=== PATIENT | male | born 1990 | race Caucasian/White ===

== ENCOUNTER 2016-12-17 20:41 | Inpatient (IN) | payer SELFPAY ==
[2016-12-17 20:42] VITALS: BP 111/65; PULSE 132; RESP 20; TEMP 100.3; O2SAT 96
[2016-12-17] MEDS ORDERED: SODIUM CHLOR 0.9% 1000 ML INJ 1,000 ML IV SCH (21:01)
[2016-12-17] MEDS ORDERED: BUSP15TA PO (21:02)
[2016-12-17] MEDS ORDERED: BUPR8SUB SL (21:02)
[2016-12-17] MEDS ORDERED: REME45TA PO (21:02)
--- NOTE | 2016-12-17 21:05 | PD ---
HPI Chief Complaint: Abdominal Pain Time Seen by Provider: 20:57 Travel History International Travel<30 days: No Contact w/Intl Traveler<30days: No History of Present Illness HPI Placed 26-year-old male presents the emergency department with history of not feeling well for the past 2 days with sudden onset nausea, and vomiting approximately 5 hours ago. Patient states he was pushing his car when he had sudden onset of nausea, vomiting, which is continued for the past 5 hours. Patient has generalized abdominal discomfort. He states he's had diarrhea for the past 2 days. He is noted to have a low-grade fever 100.6 in triage. Patient is actively nauseous and vomiting in triage. He is mildly diaphoretic. Patient does admit to taking Subutex, as well as Remeron and BuSpar. He does not feel that he is withdrawing. He denies headache, sore throat, or upper respiratory symptoms. He denies chest pain or shortness of breath. He has no history of abdominal surgeries. He has no known drug allergies Call was received from the patient's mother who reports that the patient continues to use IV drugs, and was found passed out in his car with 2 syringes in his arms, one in each arm 2 days ago. She is concerned for his safety, which is why she called to report this. Patient has not been seen in our facility previous to this visit. [facility] Social History Alcohol Use: Yes Tobacco Use: Yes Substance Use: No Allergies-Medications (Allergen,Severity, Reaction): Coded Allergies: No Known Allergies (Verified Allergy, Unknown, 12/17/16) Reported Meds & Prescriptions Reported Meds & Active Scripts Active Reported Buspirone (Buspirone HCl) 15 Mg Tab 15 Mg PO TID Remeron (Mirtazapine) 45 Mg Tab 45 Mg PO HS Buprenorphine (Buprenorphine HCl) 8 Mg Subl 8 Mg SL BID Review of Systems Except as stated in HPI: all other systems reviewed are Neg General / Constitutional: Positive: Fever, Chills Eyes: No: Visual changes HENT: No: Headaches, Vertigo, Lightheadedness, Sore Throat, Rhinitis, Rhinorrhea, Congestion, Nosebleed, Neck Stiffness, Neck Pain, Earache Cardiovascular: No: Chest Pain or Discomfort Respiratory: No: Cough, Shortness of Breath, Wheezing Gastrointestinal: Positive: Nausea, Vomiting, Diarrhea, Abdominal Pain, No: Hematemesis, Hematochezia, Constipation, Loss of Appetite Genitourinary: No: Urgency, Frequency, Dysuria Musculoskeletal: No: Pain Skin: No Rash Neurologic: No: Weakness Psychiatric: No: Depression Endocrine: No: Polydipsia Hematologic/Lymphatic: No: Easy Bruising Physical Exam Narrative GENERAL: Patient appears ill but not septic. SKIN: Warm and water or diaphoresis. Normal color. Normal turgor. Patient does have old puncture wounds from IV drug use in both proximal forearms localized bruising but no erythema, or signs of abscess. HEAD: Atraumatic. Normocephalic. EYES: Pupils equal and round. No scleral icterus. No injection or drainage. ENT: No nasal bleeding or discharge. Mucous membranes pink and moist. Pharynx is clear. Airway is patent. NECK: Trachea midline. Supple and nontender.. CARDIOVASCULAR: Tachycardic rate and normal rhythm. RESPIRATORY: No accessory muscle use. Clear to auscultation. Breath sounds equal bilaterally. GASTROINTESTINAL: Abdomen soft, mild generalized tenderness, nondistended. Hepatic and splenic margins not palpable. No CVA tenderness. MUSCULOSKELETAL: Extremities without clubbing, cyanosis, or edema. No obvious deformities. NEUROLOGICAL: Awake and alert. No obvious cranial nerve deficits. Motor grossly within normal limits. Five out of 5 muscle strength in the arms and legs. Normal speech. PSYCHIATRIC: Appropriate mood and affect; insight and judgment normal. Data Data Last Documented VS Vital Signs Date Time Temp Pulse Resp B/P (MAP) Pulse Ox O2 Delivery O2 Flow Rate FiO2 12/17/16 21:47 102.8 104 22 113/55 (74) 96 Room Air Orders Orders Complete Blood Count With Diff (12/17/16 21:01) Comprehensive Metabolic Panel (12/17/16 21:01) Lipase (12/17/16 21:01) Lactic Acid (12/17/16 21:01) Prothrombin Time / Inr (Pt) (12/17/16 21:01) Act Partial Throm Time (Ptt) (12/17/16 21:01) Urinalysis - C+S If Indicated (12/17/16 21:01) Abdomen, Flat & Upright (12/17/16 ) Iv Access Insert/Monitor (12/17/16 21:01) Ecg Monitoring (12/17/16 21:01) Oximetry (12/17/16 21:01) Ondansetron Inj (Zofran Inj) (12/17/16 21:15) Sodium Chlor 0.9% 1000 Ml Inj (Ns 1000 M (12/17/16 21:01) Sodium Chloride 0.9% Flush (Ns Flush) (12/17/16 21:15) Famotidine Inj (Pepcid Inj) (12/17/16 21:15) Influenzae A/B Antigen (12/17/16 21:05) Sodium Chlor 0.9% 1000 Ml Inj (Ns 1000 M (12/17/16 22:00) Blood Culture (12/17/16 22:01) Acetaminophen (Tylenol) (12/17/16 22:15) Lactic Acid Sepsis Protocol (12/17/16 22:01) Chest, Single Ap (12/17/16 22:01) Vancomycin Inj (Vancomycin Inj) (12/17/16 22:01) Piperacil-Tazo 4.5 Gm Premix (Zosyn 4.5 (12/17/16 22:01) Sodium Chlor 0.9% 1000 Ml Inj (Ns 1000 M (12/17/16 22:01) Sodium Chlor 0.9% 1000 Ml Inj (Ns 1000 M (12/17/16 22:01) Labs Laboratory Tests Test 12/17/16 21:05 White Blood Count 13.6 TH/MM3 Red Blood Count 5.23 MIL/MM3 Hemoglobin 14.8 GM/DL Hematocrit 43.8 % Mean Corpuscular Volume 83.7 FL Mean Corpuscular Hemoglobin 28.3 PG Mean Corpuscular Hemoglobin Concent 33.8 % Red Cell Distribution Width 13.8 % Platelet Count 328 TH/MM3 Mean Platelet Volume 7.0 FL Neutrophils (%) (Auto) 90.9 % Lymphocytes (%) (Auto) 3.3 % Monocytes (%) (Auto) 5.1 % Eosinophils (%) (Auto) 0.1 % Basophils (%) (Auto) 0.6 % Neutrophils # (Auto) 12.4 TH/MM3 Lymphocytes # (Auto) 0.4 TH/MM3 Monocytes # (Auto) 0.7 TH/MM3 Eosinophils # (Auto) 0.0 TH/MM3 Basophils # (Auto) 0.1 TH/MM3 CBC Comment DIFF FINAL Differential Comment Prothrombin Time 11.3 SEC Prothromb Time International Ratio 1.0 RATIO Activated Partial Thromboplast Time 31.7 SEC Urine Color YELLOW Urine Turbidity HAZY Urine pH 5.5 Urine Specific [place] 1.009 Urine Protein TRACE mg/dL Urine Glucose (UA) NEG mg/dL Urine Ketones NEG mg/dL Urine Occult Blood NEG Urine Nitrite NEG Urine Bilirubin NEG Urine Urobilinogen LESS THAN 2.0 MG/DL Urine Leukocyte Esterase NEG Urine RBC 4 /hpf Urine WBC 4 /hpf Urine Squamous Epithelial Cells 2 /hpf Urine Hyaline Casts 53 /lpf Urine Mucus MANY /lpf Microscopic Urinalysis Comment CULT NOT INDICATED Blood Urea Nitrogen 10 MG/DL Creatinine 1.40 MG/DL Random Glucose 95 MG/DL Total Protein 8.5 GM/DL Albumin 4.0 GM/DL Calcium Level 9.0 MG/DL Alkaline Phosphatase 103 U/L Aspartate Amino Transf (AST/SGOT) 16 U/L Alanine Aminotransferase (ALT/SGPT) 27 U/L Total Bilirubin 0.6 MG/DL Sodium Level 135 MEQ/L Potassium Level 3.8 MEQ/L Chloride Level 99 MEQ/L Carbon Dioxide Level 24.3 MEQ/L Anion Gap 12 MEQ/L Estimat Glomerular Filtration Rate 61 ML/MIN Lactic Acid Level 2.1 mmol/L Lipase 72 U/L MDM Medical Decision Making Medical Screen Exam Complete: Yes Emergency Medical Condition: Yes Differential Diagnosis Acute nausea and vomiting. Fever. Influenza. Gastroenteritis. Dehydration. Sepsis. History of IV drug use. Narrative Course Patient appears ill but not septic at time of exam. Labs ordered including CBC, CMP, lactic acid, lipase, urinalysis, and PT/PTT and INR. Rapid influenza is ordered as well. IV access is obtained and the patient is given 4 mg Zofran IV as well as 20 mg famotidine, and 1000 mL's normal saline bolus. Abdominal flat and upright x-rays ordered. X-rays are read as negative for acute process per radiologist. CBC shows leukocytosis of 13.6. Patient is greater than 90.9% neutrophils. Urinalysis is within normal limits. Coagulation studies are normal. CMP shows sodium 135, potassium 3.8, chloride 99. BUN is 10, creatinine is 1.40 with GFR of 61. Lactic acid is elevated at 2.1. Second 1000 mL normal saline boluses ordered. Rapid influenza is Repeat temperature shows a temperature 102. 5 orally. 1000 mg acetaminophen ordered by mouth. Patient is placed on the sepsis protocol with blood cultures 2 ordered as well as continued lactic acids every 2 hours. Patient is discussed with Dr. Al who recommends empiric coverage as the patient has history of IV drug use in the last 2 days, with suspected bacteremia. Patient is placed on Zosyn 4.5 g IV as well as vancomycin 1000 mg IV. Sepsis Criteria SIRS Criteria (2 or more): Temp > 100.9 or < 96.8, Heart rate over 90, WBC > 49704, < 4000 or > 10% bands Sepsis Criteria (SIRS+source): Infect source susp/known (IVDU-Bacteremia) Severe Sepsis (+one): Lactate >2 Criteria Outcome: Meets severe sepsis criteria Diagnosis Primary Impression: Sepsis Qualified Codes: A41.9 - Sepsis, unspecified organism Additional Impressions: IVDU (intravenous drug user) Fever Qualified Codes: R50.9 - Fever, unspecified Nausea and vomiting Qualified Codes: R11.2 - Nausea with vomiting, unspecified Elevated lactic acid level Admitting Information Admitting Physician Requests: Admit Condition: Stable Tanvir Castañeda Dec 17, 2016 21:05
[2016-12-17 21:12] VITALS: RESP 18; O2SAT 98
[2016-12-17] MEDS ORDERED: ONDANSETRON HCL 4 MG/2 ML VIAL IVP ONE (21:15)
[2016-12-17] MEDS ORDERED: FAMOTIDINE 20 MG/2 ML VIAL IV PUSH ONE (21:15)
[2016-12-17] MEDS ORDERED: SODIUM CHLORIDE 0.9% FLUSH 10 ML FLUSH IV FLUSH PRN ×2 (21:15→22:45)
[2016-12-17 21:28] LABS: BLOOD, URINE NEG (NEG); COMMENT (UR) CULT NOT INDICATED; CULTURE IF INDICATED CULT NOT INDICATED; GLUCOSE,URINE NEG (NEG); HYALINE CAST, URINE 53 /lpf (RARE); KETONE, URINE NEG (NEG); MUCUS URINE MANY /lpf (OCC); NITRITE,URINE NEG (NEG); PH, URINE 5.5 (5.0-8.5); SQUAMOUS EPITHELIAL CELL URINE 2 /hpf (0-5); URINE COLOR YELLOW (YELLW/STRAW)
[2016-12-17 21:33] LABS: AUTOMATED NEUTROPHIL # 12.4 TH/MM3 (1.8-7.7); BASOPHIL # 0.1 TH/MM3 (0-0.2); BASOPHIL % 0.6 % (0.0-2.0); EOSINOPHIL % 0.1 % (0.0-4.0); HEMATOCRIT 43.8 % (39.0-51.0); HEMO FLAGS DIFF FINAL; LYMPH % 3.3 % (9.0-44.0); LYMPHOCYTE # 0.4 TH/MM3 (1.0-4.8); MEAN CELL VOLUME 83.7 FL (80.0-100.0); MEAN CORPUSCULAR HEMOGLOBIN 28.3 PG (27.0-34.0); MEAN CORPUSCULAR HGB CONC 33.8 % (32.0-36.0); MONO % 5.1 % (0.0-8.0); NEUT % 90.9 % (16.0-70.0); PLATELET COUNT 328 TH/MM3 (150-450); RED BLOOD COUNT 5.23 MIL/MM3 (4.50-5.90); RED CELL DISTRIBUTION WIDTH 13.8 % (11.6-17.2); WHITE BLOOD COUNT 13.6 TH/MM3 (4.0-11.0)
[2016-12-17 21:42] LABS: ANION GAP 12 MEQ/L (5-15); BICARBONATE 24.3 MEQ/L (21.0-32.0); BLOOD UREA NITROGEN 10 MG/DL (7-18); CHLORIDE 99 MEQ/L (98-107); GLOMERULAR FILTRATION RATE 61 ML/MIN (>89); POTASSIUM 3.8 MEQ/L (3.5-5.1); SODIUM (NA) 135 MEQ/L (136-145)
[2016-12-17 21:44] LABS: ALT (GPT) 27 U/L (12-78); APTT (PATIENT) 31.7 SEC (24.3-30.1); PROTHROMBIN TIME - PATIENT 11.3 SEC (9.8-11.6)
[2016-12-17 21:47] VITALS: BP 113/55; PULSE 104; RESP 22; TEMP 102.8; O2SAT 96
[2016-12-17 21:53] LABS: ALKALINE PHOSPHATASE 103 U/L (45-117); AST (GOT) 16 U/L (15-37); TOTAL BILIRUBIN ADULT 0.6 MG/DL (0.2-1.0)
--- NOTE | 2016-12-17 21:53 | RADRPT ---
EXAM DATE/TIME: 12/17/2016 21:25 [facility] COMPARISON: No previous studies available for comparison. INDICATIONS : Pain in abdomen and vomiting. MEDICAL HISTORY : None. SURGICAL HISTORY : None. ENCOUNTER: Initial ACUITY: 1 day PAIN SCORE: 9/10 LOCATION: Abdomen FINDINGS: Supine and upright views of the abdomen were performed. The abdominal bowel gas pattern is normal. No air fluid levels are seen. No abnormal masses, calcifications, or organomegaly is seen. The visu alized lower lungs are clear. No evidence of free intraperitoneal gas. The osseous structures are u nremarkable. CONCLUSION: No acute disease. Faustino Duarte MD on December 17, 2016 at 21:51 Board Certified Radiologist. This report was verified electronically.
[2016-12-17] MEDS ORDERED: SODIUM CHLOR 0.9% 1000 ML INJ 1,000 ML IV ONE ×2 (22:00→22:01)
[2016-12-17] MEDS ORDERED: PIPERACIL-TAZO 4.5 GM PREMIX 100 ML IV STA (22:01)
[2016-12-17] MEDS ORDERED: VANCOMYCIN INJ 1,000 MG in SODIUM CHLOR 0.9% 250 ML INJ 250 ML IV STA (22:01)
[2016-12-17] MEDS ORDERED: SODIUM CHLOR 0.9% 1000 ML INJ 700 ML IV ONE (22:01)
[2016-12-17] MEDS ORDERED: ACETAMINOPHEN 500 MG CPLT PO ONE (22:15)
--- NOTE | 2016-12-17 22:40 | RADRPT ---
EXAM DATE/TIME: 12/17/2016 22:17 [facility] COMPARISON: No previous studies available for comparison. INDICATIONS : Fever. MEDICAL HISTORY : None. SURGICAL HISTORY : None. ENCOUNTER: Initial ACUITY: 1 day PAIN SCORE: 0/10 LOCATION: chest FINDINGS: A single view of the chest demonstrates the lungs to be symmetrically aerated without evidence of mas s, infiltrate or effusion. The cardiomediastinal contours are unremarkable. Osseous structures are intact. CONCLUSION: No acute disease. Faustino Duarte MD on December 17, 2016 at 22:38 Board Certified Radiologist. This report was verified electronically.
[2016-12-17] MEDS ORDERED: NALOXONE HCL 0.4 MG/ML AMP IV PRN (22:45)
[2016-12-18] VITALS (11 sets, daily range): BP systolic 99–124; BP diastolic 51–71; PULSE 61–123; RESP 18–20; TEMP 98.2–102.9; O2SAT 97–100
--- NOTE | 2016-12-18 03:11 | HHI.HP ---
[facility] Service [facility] Primary Care Physician No Primary Care Physician Admission Diagnosis Sepsis Diagnoses: (1) Sepsis (2) Nausea and vomiting (3) IVDU (intravenous drug user) Chief Complaint: fever, chills, nausea, and vomiting Travel History International Travel<30 Days: No Contact w/Intl Traveler <30 Da: No History of Present Illness Written by Kat Malhotra, acting as scribe for Dr. Yee on 12/18/16 at 03:10. The patient is seen in his hospital room. He states "I wasn't feeling well" ( fever, chills, and nausea) and then he started to vomit. He tried to drive himself here, car broke down, he tried to push it and someone found him and brought him here to hospital. He reports severe "stabbing" abdominal pain. He reports > 10 episodes of nausea with vomiting. It is starting to become bloody. He denies hematochezia or hematuria. . Review of Systems Except as stated in HPI: all other systems reviewed are Neg Past Family Social History Past Medical History He denies hypertension, heart problems, respiratory problems, liver problems, kidney problems, blood clots, seizures, or thyroid problems. Past Surgical History denies . Reported Medications Reported Meds & Active Scripts Active Reported Buspirone (Buspirone HCl) 15 Mg Tab 15 Mg PO TID Remeron (Mirtazapine) 45 Mg Tab 45 Mg PO HS Buprenorphine (Buprenorphine HCl) 8 Mg Subl 8 Mg SL BID . Allergies: Coded Allergies: No Known Allergies (Verified Allergy, Unknown, 12/17/16) Active Ordered Medications Current Medications Ondansetron HCl (Zofran Inj) 4 mg ONCE ONCE IVP Last administered on 12/17/16 21:39; Start 12/17/16 at 21:15; Stop 12/17/16 at 21:16; Status DC Sodium Chloride 1,000 ml @ 1,000 mls/hr Q1H IV Last administered on 12/17/16 21:39; Start 12/17/16 at 21:01; Stop 12/17/16 at 22:00; Status DC Sodium Chloride (NS Flush) 2 ml UNSCH PRN IV FLUSH FLUSH AFTER USING IV ACCESS ; Start 12/17/16 at 21:15; Status Cancel Famotidine (Pepcid Inj) 20 mg ONCE ONCE IV PUSH Last administered on 12/17/16 21:39; Start 12/17/16 at 21:15; Stop 12/17/16 at 21:16; Status DC Sodium Chloride 1,000 ml @ 999 mls/hr BOLUS ONCE IV Last administered on 22:21; Start 12/17/16 at 22:00; Stop 12/17/16 at 23:00; Status DC Acetaminophen (Tylenol) 1,000 mg ONCE ONCE PO Last administered on 12/17/16 22 :08; Start 12/17/16 at 22:15; Stop 12/17/16 at 22:16; Status DC Vancomycin HCl 1000 mg/Sodium Chloride 250 ml @ 250 mls/hr ONCE STAT IV Last administered on 12/17/16 22:35; Start 12/17/16 at 22:01; Stop 12/17/16 at 23:00; Status DC Piperacillin Sod/ Tazobactam Sod 100 ml @ 200 mls/hr ONCE STAT IV Last administered on 12/17/16 22:08; Start 12/17/16 at 22:01; Stop 12/17/16 at 22:30; Status DC Sodium Chloride 1,000 ml @ 1,000 mls/hr Q1H ONCE IV Last administered on 22:08; Start 12/17/16 at 22:01; Stop 12/17/16 at 23:00; Status DC Sodium Chloride 700 ml @ 1,000 mls/hr Q42M ONCE IV Last administered on 23:27; Start 12/17/16 at 22:01; Stop 12/17/16 at 22:42; Status DC Sodium Chloride (NS Flush) 2 ml UNSCH PRN IV FLUSH FLUSH AFTER USING IV ACCESS ; Start 12/17/16 at 22:45 Sodium Chloride (NS Flush) 2 ml BID IV FLUSH ; Start 12/18/16 at 09:00 Naloxone HCl (Narcan Inj) 0.4 mg UNSCH PRN IV SEE LABEL COMMENTS; Start at 22:45 . Family History Family history of diabetes, ME, and CVA . Social History Illicit drugs: Heroin - IVDA with last use 4 days ago, uses cocaine "sometimes" . Physical Exam Vital Signs Vital Signs Date Time Temp Pulse Resp B/P (MAP) Pulse Ox O2 Delivery O2 Flow Rate FiO2 12/18/16 01:20 100 12/18/16 01:17 99.3 86 18 103/51 (68) 100 12/18/16 01:13 12/18/16 00:49 101.2 95 18 99/56 (70) 98 Room Air 12/17/16 21:47 102.8 104 22 113/55 (74) 96 Room Air 12/17/16 21:12 18 98 Room Air 12/17/16 20:42 100.3 132 20 111/65 (80) 96 Room Air Physical Exam GENERAL: This is an ill appearing male patient, in no apparent distress. SKIN: Pale skin. Cool and dry. HEAD: Atraumatic. Normocephalic. EYES: No scleral icterus. No injection or drainage. ENT: Nose without bleeding, purulent drainage. NECK: Trachea midline. No JVD. CARDIOVASCULAR: Regular rate and rhythm without murmurs, gallops, or rubs. RESPIRATORY: Clear to auscultation. Breath sounds equal bilaterally. No wheezes , rales, or rhonchi. GASTROINTESTINAL: Abdomen soft, tender mid abdomen, nondistended. MUSCULOSKELETAL: Extremities without clubbing, cyanosis, or edema. NEUROLOGICAL: Awake and alert. Motor and sensory grossly within normal limits. Laboratory Laboratory Tests Test 12/17/16 21:05 12/17/16 22:10 White Blood Count 13.6 Red Blood Count 5.23 Hemoglobin 14.8 Hematocrit 43.8 Mean Corpuscular Volume 83.7 Mean Corpuscular Hemoglobin 28.3 Mean Corpuscular Hemoglobin Concent 33.8 Red Cell Distribution Width 13.8 Platelet Count 328 Mean Platelet Volume 7.0 Neutrophils (%) (Auto) 90.9 Lymphocytes (%) (Auto) 3.3 Monocytes (%) (Auto) 5.1 Eosinophils (%) (Auto) 0.1 Basophils (%) (Auto) 0.6 Neutrophils # (Auto) 12.4 Lymphocytes # (Auto) 0.4 Monocytes # (Auto) 0.7 Eosinophils # (Auto) 0.0 Basophils # (Auto) 0.1 CBC Comment DIFF FINAL Differential Comment Prothrombin Time 11.3 Prothromb Time International Ratio 1.0 Activated Partial Thromboplast Time 31.7 Urine Color YELLOW Urine Turbidity HAZY Urine pH 5.5 Urine Specific [place] 1.009 Urine Protein TRACE Urine Glucose (UA) NEG Urine Ketones NEG Urine Occult Blood NEG Urine Nitrite NEG Urine Bilirubin NEG Urine Urobilinogen LESS THAN 2.0 Urine Leukocyte Esterase NEG Urine RBC 4 Urine WBC 4 Urine Squamous Epithelial Cells 2 Urine Hyaline Casts 53 Urine Mucus MANY Microscopic Urinalysis Comment CULT NOT INDICATED Blood Urea Nitrogen 10 Creatinine 1.40 Random Glucose 95 Total Protein 8.5 Albumin 4.0 Calcium Level 9.0 Alkaline Phosphatase 103 Aspartate Amino Transf (AST/SGOT) 16 Alanine Aminotransferase (ALT/SGPT) 27 Total Bilirubin 0.6 Sodium Level 135 Potassium Level 3.8 Chloride Level 99 Carbon Dioxide Level 24.3 Anion Gap 12 Estimat Glomerular Filtration Rate 61 Lactic Acid Level 2.1 1.1 Lipase 72 Date/Time Source Procedure Growth Status 12/17/16 22:10 Blood Peripheral Aerobic Blood Culture Pending Received 12/17/16 22:10 Blood Peripheral Anaerobic Blood Culture Pending Received 12/17/16 22:00 Nasal Washing Influenza Types A,B Antigen (PRATIBHA) - Final NEGATIVE FOR FLU A AND B ANTIGEN.... Complete Result Diagram: 12/17/16210412/17/162104 Imaging . Last Impressions Chest X-Ray 12/17/162200 Signed Impressions: Service Date/Time: Saturday, December 17, 2016 22:17 - CONCLUSION: No acute disease. Faustino Duarte MD Abdomen X-Ray 12/17/16 0000 Signed Impressions: Service Date/Time: Saturday, December 17, 2016 21:25 - CONCLUSION: No acute disease. Faustino Duarte MD Caprini VTE Risk Assessment Caprini VTE Risk Assessment: Mod/High Risk (score >= 2) Caprini Risk Assessment Model Point Value = 1 Point Value = 2 Point Value = 3 Point Value = 5 Age 41-60 Minor surgery BMI > 25 kg/m2 Swollen legs Varicose veins or History of unexplained or recurrent spontaneous Oral contraceptives or hormone replacement Sepsis (< 1 month) Serious lung disease, including pneumonia (< 1 month) Abnormal pulmonary function Acute myocardial infarction Congestive heart failure (< 1 month) History of inflammatory bowel disease Medical patient at bed rest Age 61-74 Arthroscopic surgery Major open surgery (> 45 min) Laparoscopic surgery (> 45 min) Malignancy Confined to bed (> 72 hours) Immobilizing plaster cast Central venous access Age >= 75 History of VTE Family history of VTE Factor V Leiden Prothrombin 10200O Lupus anticoagulant Anticardiolipin antibodies Elevated serum homocysteine Heparin-induced thrombocytopenia Other congenital or acquired thrombophilia Stroke (< 1 month) Elective arthroplasty Hip, pelvis, or leg fracture Acute spinal cord injury (< 1 month) Prophylaxis Regimen Total Risk Factor Score Risk Level Prophylaxis Regimen 0-1 Low Early ambulation 2 Moderate Order ONE of the following: *Sequential Compression Device (SCD) *Heparin 5000 units SQ BID 3-4 Higher Order ONE of the following medications: *Heparin 5000 units SQ TID *Enoxaparin/Lovenox 40 mg SQ daily (WT < 150 kg, CrCl > 30 mL/min) *Enoxaparin/Lovenox 30 mg SQ daily (WT < 150 kg, CrCl > 10-29 mL/min) *Enoxaparin/Lovenox 30 mg SQ BID (WT < 150 kg, CrCl > 30 mL/min) AND/OR *Sequential Compression Device (SCD) 5 or more Highest Order ONE of the following medications: *Heparin 5000 units SQ TID (Preferred with Epidurals) *Enoxaparin/Lovenox 40 mg SQ daily (WT < 150 kg, CrCl > 30 mL/min) *Enoxaparin/Lovenox 30 mg SQ daily (WT < 150 kg, CrCl > 10-29 mL/min) *Enoxaparin/Lovenox 30 mg SQ BID (WT < 150 kg, CrCl > 30 mL/min) AND *Sequential Compression Device (SCD) Assessment and Plan Problem List: (1) Sepsis ICD Code: A41.9 - Sepsis, unspecified organism Status: Acute (2) Nausea and vomiting ICD Code: R11.2 - Nausea with vomiting, unspecified Status: Acute (3) IVDU (intravenous drug user) ICD Code: F19.90 - Other psychoactive substance use, unspecified, uncomplicated Status: Acute Assessment and Plan 26 y/o with a history of IVDA who presented to ED for fever, chills, nausea, and vomiting: Sepsis Bacteremia Abdominal pain, nausea and vomiting - WBC 13.6 with neutrophilia - TMAX 102.8 in ED with tachycardia: HR 132 in ED; lactic acid 2.1 initially, 1.1 on repeat - negative for flu a and b - blood cultures drawn; follow results and adjust treatments as needed - Antibiotics: IV Zosyn and Vancomycin - consult infectious disease - appreciate assistance - check 2 D echocardiogram to evaluate cardiac structures and function - check CT abdomen/pelvis with IV contrast to r/o appendicitis or cholecystitis as sources of sepsis DVT prophylaxis - Lovenox 40 mg subq daily . This note was transcribed by ame [Kat Malhotra]. I, Dr. Earl Yee personally performed the history, physical exam, and medical decision making; and confirmed the accuracy of the information in the transcribed note. Authenticated by Dr. Earl Yee on 12/18/16 at 03:10. Discussed Condition With ER physician and patient . Physician Certification 2 Midnight Certification Type: Admission for Inpatient Services Order for Inpatient Services The services are ordered in accordance with Medicare regulations or non- Medicare payer requirements, as applicable. In the case of services not specified as inpatient-only, they are appropriately provided as inpatient services in accordance with the 2-midnight benchmark. Estimated LOS (days): 3 days is the estimated time the patient will need to remain in the hospital, assuming treatment plan goals are met and no additional complications. Post-Hospital Plan: Not yet determined Problem Qualifiers (1) Sepsis: Qualified Codes: A41.9 - Sepsis, unspecified organism (2) Nausea and vomiting: Qualified Codes: R11.2 - Nausea with vomiting, unspecified Kat Malhotra Dec 18, 2016 03:10 Earl Yee MD Dec 18, 2016 07:31
[2016-12-18] MEDS ORDERED: Vancomycin Consult Pharmacy 1 EA OTHER SCH (03:15)
[2016-12-18] MEDS: SODIUM CHLOR 0.9% 1000 ML INJ 1,000 ML IV SCH ×3 (03:56→23:06)
[2016-12-18] MEDS: PIPERACIL-TAZO 4.5 GM PREMIX 100 ML IV SCH ×4 (03:56→21:01)
[2016-12-18] MEDS: ACETAMINOPHEN 325 MG TAB PO PRN ×2 (03:57→11:25)
[2016-12-18] MEDS ORDERED: DIATRIZOATE MEGLUM/DIATRIZOATE SOD 9 ML CUP PO ONE (04:00)
[2016-12-18] MEDS ORDERED: VANCOMYCIN INJ 1,500 MG in SODIUM CHLORID 0.9% 500 ML INJ 500 ML IV SCH (06:00)
[2016-12-18] MEDS ORDERED: IOHEXOL 350 MG/ML 10 ML VIAL (for RAD DIAG) IVCONTRAST ONE (08:02)
[2016-12-18] MEDS: SODIUM CHLORIDE 0.9% FLUSH 10 ML FLUSH IV FLUSH SCH ×2 (08:18→19:45)
[2016-12-18] MEDS: ENOXAPARIN SODIUM 40 MG/0.4 ML SYRINGE SQ SCH (08:18)
[2016-12-18] MEDS: MIRTAZAPINE 15 MG TAB PO SCH ×2 (08:22→19:45)
--- NOTE | 2016-12-18 09:09 | RADRPT ---
EXAM DATE/TIME: 12/18/2016 07:42 [facility] COMPARISON: No previous studies available for comparison. INDICATIONS : Right sided pain IV CONTRAST: 93 cc Omnipaque 350 (iohexol) IV ORAL CONTRAST: No oral contrast ingested. RADIATION DOSE: 7.34 CTDIvol (mGy) MEDICAL HISTORY : None SURGICAL HISTORY : None. ENCOUNTER: Initial ACUITY: 2 days PAIN SCALE: 5/10 LOCATION: Right lower quadrant TECHNIQUE: Volumetric scanning of the abdomen and pelvis was performed. Using automated exposure control and adjustment of the mA and/or kV according to patient size, radiation dose was kept as low as reasonably achievable to obtain optimal diagnostic quality images. DICOM format image data is av ailable electronically for review and comparison. FINDINGS: CT Abdomen: The liver, spleen, pancreas, kidneys, adrenals are unremarkable. There is no evidence for any appreciable pathological adenopathy, free fluid, or bowel obstruction. Slight degree of somewha t linear irregular opacity is seen in both lung bases mostly consistent with scarring. The gallbladde r is slightly contracted with questionable mild pericholecystic fluid. CT pelvis: There is no evidence for mass, abscess formation, or any significant adenopathy within the pelvis. The appendix appears intact without definite signs of appendicitis. The colon is decompresse d difficult to evaluate with stool within it. CONCLUSION: Questionable mild pericholecystic fluid, otherwise unremarkable. Erin Celis MD on December 18, 2016 at 9:03 Board Certified Radiologist. This report was verified electronically.
[2016-12-18 09:27] LABS: AUTOMATED NEUTROPHIL # 8.1 TH/MM3 (1.8-7.7); BASOPHIL % 0.2 % (0.0-2.0); HEMATOCRIT 40.8 % (39.0-51.0); HEMO FLAGS DIFF FINAL; LYMPH % 3.7 % (9.0-44.0); LYMPHOCYTE # 0.3 TH/MM3 (1.0-4.8); MEAN CELL VOLUME 84.7 FL (80.0-100.0); MEAN CORPUSCULAR HEMOGLOBIN 28.9 PG (27.0-34.0); MEAN CORPUSCULAR HGB CONC 34.1 % (32.0-36.0); MONO % 3.8 % (0.0-8.0); NEUT % 92.3 % (16.0-70.0); PLATELET COUNT 245 TH/MM3 (150-450); RED BLOOD COUNT 4.81 MIL/MM3 (4.50-5.90); RED CELL DISTRIBUTION WIDTH 13.5 % (11.6-17.2); WHITE BLOOD COUNT 8.8 TH/MM3 (4.0-11.0)
[2016-12-18 09:57] LABS: BICARBONATE 23.8 MEQ/L (21.0-32.0); POTASSIUM 3.6 MEQ/L (3.5-5.1)
--- NOTE | 2016-12-18 15:22 | HHI.PR ---
Subjective Remarks Follow-up for abdominal pain Abdominal pain is better, not nausea but no vomiting. Afebrile. Still with loose stools, watery. Objective Vitals Vital Signs Date Time Temp Pulse Resp B/P (MAP) Pulse Ox O2 Delivery O2 Flow Rate FiO2 12/18/16 11:30 101.6 93 20 118/59 (78) 99 12/18/16 07:50 98.2 82 20 105/55 (72) 97 12/18/16 04:00 110 12/18/16 04:00 102.9 117 20 124/57 (79) 97 12/18/16 01:20 100 12/18/16 01:17 99.3 86 18 103/51 (68) 100 12/18/16 01:13 12/18/16 00:49 101.2 95 18 99/56 (70) 98 Room Air 12/17/16 21:47 102.8 104 22 113/55 (74) 96 Room Air 12/17/16 21:12 18 98 Room Air 12/17/16 20:42 100.3 132 20 111/65 (80) 96 Room Air I/O 12/17/16 12/17/16 12/17/16 12/18/16 12/18/16 12/18/16 06:59 14:59 22:59 06:59 14:59 22:59 Intake Total 1100 ml 2490 ml Balance 1100 ml 2490 ml Intake Oral 240 ml IV Total 1100 ml 2250 ml # Voids 5 Result Diagram: 12/18/16 0815 12/18/16 0815 Imaging Last Impressions Abdomen/Pelvis CT 12/18/16 0000 Signed Impressions: Service Date/Time: December 07:42 - CONCLUSION: Questionable mild pericholecystic fluid, otherwise unremarkable. Erin Celis MD Chest X-Ray 12/17/162200 Signed Impressions: Service Date/Time: Saturday, December 17, 2016 22:17 - CONCLUSION: No acute disease. Faustino Duarte MD Abdomen X-Ray 12/17/16 0000 Signed Impressions: Service Date/Time: Saturday, December 17, 2016 21:25 - CONCLUSION: No acute disease. Faustino Duarte MD Objective Remarks Not in distress, well-nourished, looks stated age Normal rate and regular rhythm, no murmurs gallops or rubs appreciated. Clear to auscultation and symmetric bilaterally, normal respiratory effort. Normal bowel sounds, soft, mild abdominal tenderness especially in the right upper quadrant, negative Darden's, negative guarding Extremities without clubbing, cyanosis, or edema. No rash of generalized distribution. Skin is warm and dry. AAO x3, no cranial nerve deficits, moves all 4 extremities, no focal neurologic deficits Normal mood, appropriate affect A/P Problem List: (1) Sepsis ICD Code: A41.9 - Sepsis, unspecified organism Status: Acute (2) Nausea and vomiting ICD Code: R11.2 - Nausea with vomiting, unspecified Status: Acute (3) IVDU (intravenous drug user) ICD Code: F19.90 - Other psychoactive substance use, unspecified, uncomplicated Status: Acute Assessment and Plan 26 y/o with a history of IVDA who presented to ED for fever, chills, nausea, and vomiting Sepsis, rule out bacteremia, rule out cholecystitis-patient with fever, leukocytosis, tachycardia and lactic acidosis. Abdominal pain is better, CT scan of the abdomen revealed possible pericholecystic fluid. Follow-up blood culture results, awaiting ID consult and echocardiogram. Check HIDA scan. Stop vancomycin and continue Zosyn for now. Urinalysis and chest x-ray negative. Leukocytosis better Acute renal failure-resolved, decrease IVF, recheck BMP tomorrow History of narcotic dependence-on Sobutex 8-16 mg daily, will start Percocet for now given presence of pain, monitor for withdrawal DVT prophylaxis - Lovenox 40 mg subq daily . Problem Qualifiers (1) Sepsis: Qualified Codes: A41.9 - Sepsis, unspecified organism (2) Nausea and vomiting: Qualified Codes: R11.2 - Nausea with vomiting, unspecified Dina Meyers MD Dec 18, 2016 15:22
[2016-12-18] MEDS ORDERED: MORPHINE SULFATE 8 MG/ML INJ IV PUSH PRN (15:30)
[2016-12-18] MEDS: oxyCODONE/ACETAMINOPHEN 10 MG/325 MG TAB PO PRN ×3 (15:42→23:50)
[2016-12-18] MEDS ORDERED: VANCOMYCIN INJ 1,750 MG in SODIUM CHLORID 0.9% 500 ML INJ 500 ML IV SCH (18:00)
[2016-12-18] MEDS ORDERED: diphenhydrAMINE HCL 25 MG CAP PO PRN (18:30)
[2016-12-19] VITALS (10 sets, daily range): BP systolic 110–126; BP diastolic 61–74; PULSE 54–73; RESP 16–18; TEMP 97.2–98.9; O2SAT 98–99
[2016-12-19] MEDS: PIPERACIL-TAZO 4.5 GM PREMIX 100 ML IV SCH ×4 (03:52→22:26)
[2016-12-19] MEDS: oxyCODONE/ACETAMINOPHEN 10 MG/325 MG TAB PO PRN ×5 (03:52→20:53)
[2016-12-19] MEDS ORDERED: PHARMACY ORDERED LAB ONE (05:45)
[2016-12-19 08:16] LABS: AUTOMATED NEUTROPHIL # 5.6 TH/MM3 (1.8-7.7); BASOPHIL % 0.4 % (0.0-2.0); EOSINOPHIL # 0.3 TH/MM3 (0-0.4); EOSINOPHIL % 4.2 % (0.0-4.0); HEMO FLAGS DIFF FINAL; LYMPH % 18.4 % (9.0-44.0); LYMPHOCYTE # 1.5 TH/MM3 (1.0-4.8); MEAN CORPUSCULAR HEMOGLOBIN 28.9 PG (27.0-34.0); MEAN CORPUSCULAR HGB CONC 33.9 % (32.0-36.0); MONO % 8.4 % (0.0-8.0); NEUT % 68.6 % (16.0-70.0); PLATELET COUNT 201 TH/MM3 (150-450); RED CELL DISTRIBUTION WIDTH 13.7 % (11.6-17.2); WHITE BLOOD COUNT 8.2 TH/MM3 (4.0-11.0)
[2016-12-19 08:23] LABS: BICARBONATE 24.9 MEQ/L (21.0-32.0); POTASSIUM 3.5 MEQ/L (3.5-5.1)
[2016-12-19] MEDS: SODIUM CHLORIDE 0.9% FLUSH 10 ML FLUSH IV FLUSH SCH ×2 (08:23→20:53)
[2016-12-19] MEDS: ENOXAPARIN SODIUM 40 MG/0.4 ML SYRINGE SQ SCH (08:28)
[2016-12-19] MEDS ORDERED: Vancomycin Consult Pharmacy 1 EA OTHER SCH (11:00)
--- NOTE | 2016-12-19 11:29 | RADRPT ---
EXAM DATE/TIME: 12/19/2016 09:08 [facility] COMPARISON: CT ABDOMEN & PELVIS W CONTRAST, December 18, 2016, 7:42. INDICATIONS : Abdominal pain. DOSE: 4.1 mCi Tc99m Mebrofenin IV MEDICAL HISTORY : Asthma. SURGICAL HISTORY : None. ENCOUNTER: Initial ACUITY: 1 day PAIN SCALE: 1/10 LOCATION: Right upper quadrant TECHNIQUE: Following the intravenous administration of radiotracer, dynamic sequential images were performed wit h continuous acquisition. FINDINGS: There is very little activity visualized in the common bile duct and bowel. Hepatic uptake is wi thin normal limits and gallbladder is visualized by 25 minutes without any emptying. CONCLUSION: Possibility of common bile duct obstruction should be entertained and there is no evidence for cystic duct obstruction. Erin Celis MD on December 19, 2016 at 11:06 Board Certified Radiologist. This report was verified electronically.
--- NOTE | 2016-12-19 14:10 | HHI.PR ---
Subjective Remarks Patient resting in bed denied nausea or vomiting nor fever or chills He stated he shotted drugs on Thursday Objective Vitals Vital Signs Date Time Temp Pulse Resp B/P (MAP) Pulse Ox O2 Delivery O2 Flow Rate FiO2 12/19/16 12:00 97.8 58 16 114/62 (79) 99 12/19/16 08:00 98.2 62 16 119/63 (81) 98 12/19/16 07:58 59 12/19/16 04:00 64 12/19/16 04:00 98.4 59 16 114/61 (78) 98 12/19/16 00:00 98.9 73 18 110/67 (81) 99 12/19/16 00:00 69 12/18/16 20:00 99.1 70 18 111/71 (84) 97 12/18/16 20:00 67 12/18/16 16:10 62 12/18/16 15:50 98.8 61 20 120/66 (84) I/O 12/18/16 12/18/16 12/18/16 12/19/16 12/19/16 12/19/16 06:59 14:59 22:59 06:59 14:59 22:59 Intake Total 2490 ml 1895 ml 2240 ml Balance 2490 ml 1895 ml 2240 ml Intake Oral 240 ml 1280 ml 240 ml IV Total 2250 ml 615 ml 2000 ml # Voids 5 6 4 # Bowel Movements 1 Result Diagram: 12/19/16 0749 12/19/16 0749 Objective Remarks GENERAL: This is a well-nourished, well-developed patient, in no apparent distress. SKIN: No rashes, warm and dry HEAD: Atraumatic. Normocephalic. EYES: Pupils equal round and reactive. Extraocular motions intact. No scleral icterus. ENT: Nose without bleeding, or drainage, Airway patent. NECK: Trachea midline. Supple CARDIOVASCULAR: Regular rate and rhythm without murmurs, gallops, or rubs. RESPIRATORY: Fair air entry bilaterally. No wheezes, rales, or rhonchi. GASTROINTESTINAL: Abdomen soft, non-tender, nondistended. Positive bowel sounds MUSCULOSKELETAL: Extremities without clubbing, cyanosis, or edema. Pedal pulses appreciated NEUROLOGICAL: Awake and alert. Moves all extremity. Normal speech.no focal neurological deficit A/P Problem List: (1) Sepsis ICD Code: A41.9 - Sepsis, unspecified organism Status: Acute (2) Nausea and vomiting ICD Code: R11.2 - Nausea with vomiting, unspecified Status: Acute (3) IVDU (intravenous drug user) ICD Code: F19.90 - Other psychoactive substance use, unspecified, uncomplicated Status: Acute Assessment and Plan 26 y/o with a history of IVDA who presented to ED for fever, chills, nausea, and vomiting Sepsis, rule out bacteremia, rule out cholecystitis-patient with fever, leukocytosis, tachycardia and lactic acidosis. Abdominal pain is better, CT scan of the abdomen revealed possible pericholecystic fluid. blood culture results so far no growth, awaiting ID consult , echocardiogram normal EF 55% no vegetation. HIDA scan suspicious for common bile duct obstruction. vancomycin has been stopped and continue Zosyn for now. Urinalysis and chest x- ray negative. Leukocytosis improved Acute renal failure-resolved, decrease IVF, follow BMP History of narcotic dependence-on Sobutex 8-16 mg daily, started on Percocet for now given presence of pain, monitor for withdrawal DVT prophylaxis - Lovenox 40 mg subq daily Problem Qualifiers (1) Sepsis: Qualified Codes: A41.9 - Sepsis, unspecified organism (2) Nausea and vomiting: Qualified Codes: R11.2 - Nausea with vomiting, unspecified Louie Leary MD Dec 19, 2016 14:10
[2016-12-19] MEDS: SODIUM CHLOR 0.9% 1000 ML INJ 1,000 ML IV SCH (14:44)
--- NOTE | 2016-12-19 15:14 | ECHRPT ---
Indication: R/O Vegetation CONCLUSIONS Normal left ventricular size and wall thickness. The left ventricular systolic function is normal wi th an estimated ejection fraction in the range of 60-65%. Left ventricular diastolic function parameters a re normal. No significant valvulopathies BP: 105 / 55 HR: 72 Rhythm: Sinus MEASUREMENTS (Male / Female) Normal Values Technical Quality:Good 2D ECHO LV Diastolic Diameter PLAX 4.4 cm 4.2 - 5.9 / 3.9 - 5.3 cm LV Systolic Diameter PLAX 3.0 cm IVS Diastolic Thickness 1.0 cm 0.6 - 1.0 / 0.6 - 0.9 cm LVPW Diastolic Thickness 1.0 cm 0.6 - 1.0 / 0.6 - 0.9 cm LV Relative Wall Thickness 0.5 RV Internal Dim ED PLAX 2.6 cm LVOT Diameter 2.0 cm LA Systolic Diameter LX 3.3 cm 3.0 - 4.0 / 2.7 - 3.8 cm LV Ejection Fraction MOD 4C 60.3 % LV Cardiac Index MOD 4C 2557.1 cm/minm LV Ejection Fraction 4C AL 60.5 % LV Cardiac Index 4C AL 2653.1 cm/minm M-MODE Aortic Root Diameter MM 3.3 cm AV Cusp Separation MM 2.6 cm DOPPLER AV Peak Velocity 110.0 cm/s AV Peak Gradient 4.8 mmHg LVOT Peak Velocity 84.4 cm/s LVOT Peak Gradient 2.8 mmHg AV Area Cont Eq pk 2.4 cm MV Area PHT 3.4 cm Mitral E Point Velocity 109.0 cm/s Mitral A Point Velocity 39.0 cm/s Mitral E to A Ratio 2.8 FINDINGS LEFT VENTRICLE Normal left ventricular size and wall thickness. The left ventricular systolic function is normal wi th an estimated ejection fraction in the range of 60-65%. Left ventricular diastolic function parameters a re normal. RIGHT VENTRICLE Normal right ventricular size and systolic function. LEFT ATRIUM The left atrial size is normal. RIGHT ATRIUM The right atrial size is normal. ATRIAL SEPTUM Normal atrial septal thickness without atrial level shunting by limited color doppler interrogation. AORTA The aortic root and proximal ascending aorta are normal in size on limited imaging. MITRAL VALVE Structurally normal mitral valve. No mitral valve stenosis or regurgitation. AORTIC VALVE Trileaflet aortic valve. No aortic valve stenosis or regurgitation. TRICUSPID VALVE Structurally normal tricuspid valve. No tricuspid valve stenosis or regurgitation. PULMONARY VALVE The pulmonary valve is not well visualized. VESSELS The inferior vena cava is normal in size. PERICARDIUM No pericardial effusion. Toño Holland MD (Electronically Signed) Final Date:19 December 2016 15:12
[2016-12-19] MEDS: NICOTINE 14 MG/24 HR PATCH T-DERMAL SCH (17:08)
[2016-12-19] MEDS: MIRTAZAPINE 15 MG TAB PO SCH (22:26)
[2016-12-20] VITALS (7 sets, daily range): BP systolic 109–128; BP diastolic 52–72; PULSE 58–89; RESP 16–18; TEMP 97.4–98.5; O2SAT 98
[2016-12-20] MEDS: oxyCODONE/ACETAMINOPHEN 10 MG/325 MG TAB PO PRN ×6 (03:16→23:15)
[2016-12-20] MEDS: PIPERACIL-TAZO 4.5 GM PREMIX 100 ML IV SCH ×4 (03:16→21:20)
[2016-12-20] MEDS: SODIUM CHLOR 0.9% 1000 ML INJ 1,000 ML IV SCH ×2 (07:09→21:20)
[2016-12-20] MEDS: SODIUM CHLORIDE 0.9% FLUSH 10 ML FLUSH IV FLUSH SCH ×2 (09:00→20:37)
[2016-12-20] MEDS: REMOVE OLD PATCH T-DERMAL SCH (09:00)
[2016-12-20] MEDS: ENOXAPARIN SODIUM 40 MG/0.4 ML SYRINGE SQ SCH (09:14)
[2016-12-20] MEDS: NICOTINE 14 MG/24 HR PATCH T-DERMAL SCH (09:14)
--- NOTE | 2016-12-20 12:58 | HHI.PR ---
Subjective Remarks Not complain today, no chest pain or short of breath or fever or chills I discussed with ID, awaiting GI consultation regarding common bile duct obstruction Objective Vitals Vital Signs Date Time Temp Pulse Resp B/P (MAP) Pulse Ox O2 Delivery O2 Flow Rate FiO2 12/20/16 08:00 97.4 68 16 124/65 (84) 98 12/20/16 04:36 19 12/20/16 04:00 98.4 69 16 120/64 (82) 98 12/20/16 00:04 98.0 58 16 124/72 (89) 98 12/19/16 21:00 63 12/19/16 20:00 97.6 73 18 126/74 (91) 99 12/19/16 16:05 60 12/19/16 16:00 97.2 54 16 116/70 (85) 99 12/19/16 13:44 73 I/O 12/19/16 12/19/16 12/19/16 12/20/16 12/20/16 12/20/16 07:00 15:00 23:00 07:00 15:00 23:00 Intake Total 929 ml 2487 ml 480 ml 663 ml Balance 929 ml 2487 ml 480 ml 663 ml Intake Oral 1920 ml 480 ml IV Total 929 ml 567 ml 663 ml # Voids 4 5 5 Result Diagram: 12/19/16 0749 12/19/16 0749 Objective Remarks GENERAL: This is a well-nourished, well-developed patient, in no apparent distress. SKIN: No rashes, warm and dry HEAD: Atraumatic. Normocephalic. EYES: Pupils equal round and reactive. Extraocular motions intact. No scleral icterus. ENT: Nose without bleeding, or drainage, Airway patent. NECK: Trachea midline. Supple CARDIOVASCULAR: Regular rate and rhythm without murmurs, gallops, or rubs. RESPIRATORY: Fair air entry bilaterally. No wheezes, rales, or rhonchi. GASTROINTESTINAL: Abdomen soft, non-tender, nondistended. Positive bowel sounds MUSCULOSKELETAL: Extremities without clubbing, cyanosis, or edema. Pedal pulses appreciated NEUROLOGICAL: Awake and alert. Moves all extremity. Normal speech.no focal neurological deficit A/P Problem List: (1) Sepsis ICD Code: A41.9 - Sepsis, unspecified organism Status: Acute (2) Nausea and vomiting ICD Code: R11.2 - Nausea with vomiting, unspecified Status: Acute (3) IVDU (intravenous drug user) ICD Code: F19.90 - Other psychoactive substance use, unspecified, uncomplicated Status: Acute Assessment and Plan 12/20: Patient has been afebrile, continue iv antibiotic, awaiting GI consultation , discussed with ID Dr. Montanez A/P: 26 y/o with a history of IVDA who presented to ED for fever, chills, nausea, and vomiting Sepsis, rule out bacteremia, rule out cholecystitis-patient with fever, leukocytosis, tachycardia and lactic acidosis. Abdominal pain is better, CT scan of the abdomen revealed possible pericholecystic fluid. blood culture results so far no growth, awaiting ID consult , echocardiogram normal EF 55% no vegetation. HIDA scan suspicious for common bile duct obstruction. vancomycin has been stopped and continue Zosyn for now. Urinalysis and chest x- ray negative. Leukocytosis improved Acute renal failure-resolved, decrease IVF, follow BMP History of narcotic dependence-on Sobutex 8-16 mg daily, started on Percocet for now given presence of pain, monitor for withdrawal DVT prophylaxis - Lovenox 40 mg subq daily Problem Qualifiers (1) Sepsis: Qualified Codes: A41.9 - Sepsis, unspecified organism (2) Nausea and vomiting: Qualified Codes: R11.2 - Nausea with vomiting, unspecified Louie Leary MD Dec 20, 2016 12:58
--- NOTE | 2016-12-20 18:45 | PD.ID.CON ---
History of Present Illness Service ID Consult Requested By Dr Leary Reason for Consult endocarditis Primary Care Physician No Primary Care Physician Diagnoses: History of Present Illness 26 yo male with active IVDU presented 3 days ago with fever, abdominal pain, bausea, vomiting and genearl malaise x 1 day His lactic acid was mildly elevated He presetned with fever up to 102.9 and mildl leukocytosis He was satrted on zosyn Pt's HIDA scan was positive for ? CBD obstructii, CT with questionable mild pericholecystic fluid LFTs wnl His blood clx are negative @ 3 days and he reports resolution of nausea, vomiting. He ate small amount of lunch uneventfully His fever resolved 2 D echo was negative for any vegetations Review of Systems Except as stated in HPI: all other systems reviewed are Neg Past Family Social History Allergies: Coded Allergies: No Known Allergies (Verified Allergy, Unknown, 12/17/16) Past Medical History denies Past Surgical History denies Active Ordered Medications Medications where reviewed in EMR Antibiotics Include: zosyn Family History father had gallstones Social History Illicit drugs: Heroin - IVDA with last use 4 days ago, uses cocaine "sometimes" no tobacco no ETOH Physical Exam Vital Signs Vital Signs Date Time Temp Pulse Resp B/P (MAP) Pulse Ox O2 Delivery O2 Flow Rate FiO2 12/20/16 16:00 98.5 72 16 128/67 (87) 98 12/20/16 12:00 98.2 64 16 109/52 (71) 98 12/20/16 08:00 97.4 68 16 124/65 (84) 98 12/20/16 04:36 19 12/20/16 04:00 98.4 69 16 120/64 (82) 98 12/20/16 00:04 98.0 58 16 124/72 (89) 98 12/19/16 21:00 63 12/19/16 20:00 97.6 73 18 126/74 (91) 99 Physical Exam CONSTITUTIONAL/GENERAL: This is an adequately nourished patient, in no apparent distress. TUBES/LINES/DRAINS: SKIN: No jaundice, rashes, or lesions. Few needle track gunderson Skin temperature appropriate. Not diaphoretic. HEAD: Atraumatic. Normocephalic. EYES: Pupils equal and round and reactive. Extraocular motions intact. No scleral icterus. No injection or drainage. Fundi not examined. ENT: Hearing grossly normal. Nose without bleeding or purulent drainage. Throat without visible erythema, exudates, masses, or lesions. NECK: Trachea midline. Supple, nontender. No palpable thyroid enlargement or nodularity. CARDIOVASCULAR: Regular rate and rhythm without murmurs, gallops, or rubs. No JVD. Peripheral pulses symmetric. RESPIRATORY/CHEST: Symmetric, unlabored respirations. Clear to auscultation. Breath sounds equal bilaterally. No wheezes, rales, or rhonchi. GASTROINTESTINAL: Abdomen soft, ? mild tenderness in RUQ no g/r, nondistended. No hepato-splenomegaly, or palpable masses. No guarding. Bowel sounds present. GENITOURINARY: Without palpable bladder distension. MUSCULOSKELETAL: Extremities without clubbing, cyanosis, or edema. No joint tenderness or effusion noted. No calf tenderness. No mottling or clubbing. LYMPHATICS: No palpable cervical or supraclavicular adenopathy. NEUROLOGICAL: Awake and alert. Motor and sensory grossly within normal limits. Follows commands. Cognitively sharp. Moves all extremities. PSYCHIATRIC: No obvious anxiety/depression. no apparent hallucinations or other psychotic thought process. Laboratory Date/Time Source Procedure Growth Status 12/17/16 22:10 Blood Peripheral Aerobic Blood Culture - Preliminary NO GROWTH IN 3 DAYS Resulted 12/17/16 22:10 Blood Peripheral Anaerobic Blood Culture - Preliminary NO GROWTH IN 3 DAYS Resulted 12/17/16 22:00 Nasal Washing Influenza Types A,B Antigen (PRATIBHA) - Final NEGATIVE FOR FLU A AND B ANTIGEN.... Complete Result Diagram: 12/19/16 0749 12/19/16 0749 Imaging Last Impressions Hepatobiliary Scan Nuclear Medicine 12/19/16 0000 Signed Impressions: Service Date/Time: Monday, December 19, 2016 09:08 - CONCLUSION: Possibility of common bile duct obstruction should be entertained and there is no evidence for cystic duct obstruction. Erin Celis MD Abdomen/Pelvis CT 12/18/16 0000 Signed Impressions: Service Date/Time: December 07:42 - CONCLUSION: Questionable mild pericholecystic fluid, otherwise unremarkable. Erin Celis MD Chest X-Ray 12/17/162200 Signed Impressions: Service Date/Time: Saturday, December 17, 2016 22:17 - CONCLUSION: No acute disease. Faustino Duarte MD Abdomen X-Ray 12/17/16 0000 Signed Impressions: Service Date/Time: Saturday, December 17, 2016 21:25 - CONCLUSION: No acute disease. Faustino Duarte MD Assessment and Plan Assessment and Plan Acute febrie illness in a pt with known IVDU - fever resolved - blood clx wnl Abnormal HIDA, ? CBD obstruction Dc abx if blood clx remain negative GI consult hepatitis profile OK to dc pt if cleared by GI and blood clx remain negative/afebrile Discussed Condition With Vibha Espinosa MD Dec 20, 2016 18:45
--- NOTE | 2016-12-20 20:30 | MB ---
cc: GABRIELLE SANCHEZ M.D. DATE OF CONSULTATION 12/20/16 DATE OF [address] Meyers HISTORY OF PRESENT ILLNESS Mr. Watts is a pleasant 26-year-old gentleman who came to the emergency room with complaints of weakness, passing out, severe abdominal pain and fever. The patient stated he also had nausea and vomiting at that time, currently having some diarrhea. In the emergency room he had fever and chills. Workup was performed for sepsis. He had a CT abdomen and pelvis that showed questionable mild pericholecystic fluid, otherwise, unremarkable. Based on that a HIDA scan was ordered which showed possible common bile duct obstruction ,as the contrast was not seen in the small intestine. The patient is feeling much better at this time. Denies any nausea and vomiting. He does have some diarrhea at this point. No further episodes of abdominal pain, some discomfort in the right upper quadrant. The patient states he is on a rehab program. He recently used heroin again-a bag of heroin. He stated he did that because he was feeling very poorly and he was trying to improve his mood, but after taking the heroin he actually felt bad and based on that he felt there may be something going on with his health and decided to come to the emergency room. He never had endoscopy and colonoscopy. PAST MEDICAL HISTORY History of IVDA, currently on rehab, recent relapse. He does have anxiety disorder. Depression and asthma. PAST SURGICAL HISTORY Has a history of intussusception. FAMILY HISTORY No family history of colon cancer or any other GI pathology. MEDICATIONS AT HOME 1. __. 2. Morphine. 3. Buspirone. 4. Remeron. In the hospital he is on: 1. Benadryl. 2. Lovenox. 3. Remeron. 4. Morphine. 5. Habitrol. 6. Percocet. REVIEW OF SYSTEMS CONSTITUTIONAL: He did have fever, chills, weakness on admission to the hospital. ENT: No alteration in baseline hearing or visual acuity PULMONARY: Denies any chest pain, shortness of breath. GASTROINTESTINAL: As above. GENITOURINARY: Denies dysuria, hematuria. HEMATOLOGIC: No history or anemia or bleeding disorder. SKIN: No alteration in baseline skin lesion. NEUROLOGIC: No history of TIA or CVA kind of symptoms. PHYSICAL EXAMINATION GENERAL: On clinical exam he is sitting comfortably in bed at this time, in no acute distress. VITAL SIGNS: Temperature 98.2, blood pressure 124/65. HEENT: WILLIE. NECK: No JVD. No lymphadenopathy. CHEST: Clear to auscultation and palpation. CARDIOVASCULAR: S1-S2. No murmur. ABDOMEN: Abdomen is soft, nontender. Bowel sounds are present. TANK WAGON OPERATOR: Awake, alert, oriented x3. No focal signs identified. LABORATORY DATA His white count 8.2, 13.6. His chemistry normal at this point. PT/INR normal. IMAGING STUDIES The patient had a CT which showed questionable mild pericholecystic fluid. HIDA scan as mentioned IMPRESSION Fever, nausea and vomiting, abdominal pain, possible secondary to heroin use. Abnormal HIDA scan also possible related to drug effect. No indication of biliary obstruction based on blood work and clinical presentation. Diarrhea, if continues we are going to send C. Diff, ova and parasites. RECOMMENDATIONS Hepatitis profile, MRCP, delayed study HIDA scan to further evaluate for biliary obstruction although I doubt this is the case. Infectious disease on the case. Advise about stopping use of any drugs. I would like to thank Dr. Leary for referring him to our office for consultation. Gabrielle Sanchez MD BSB/EO /7:50 PM /8:10 PM MTDAnusha
[2016-12-20 21:50] LABS: AUTOMATED NEUTROPHIL # 3.9 TH/MM3 (1.8-7.7); BASOPHIL % 0.3 % (0.0-2.0); EOSINOPHIL # 0.2 TH/MM3 (0-0.4); EOSINOPHIL % 2.8 % (0.0-4.0); HEMATOCRIT 41.6 % (39.0-51.0); LYMPH % 33.3 % (9.0-44.0); LYMPHOCYTE # 2.4 TH/MM3 (1.0-4.8); MEAN CELL VOLUME 86.4 FL (80.0-100.0); MEAN CORPUSCULAR HEMOGLOBIN 28.5 PG (27.0-34.0); MONO % 9.5 % (0.0-8.0); NEUT % 54.1 % (16.0-70.0); PLATELET COUNT 243 TH/MM3 (150-450); RED BLOOD COUNT 4.81 MIL/MM3 (4.50-5.90); RED CELL DISTRIBUTION WIDTH 13.8 % (11.6-17.2); WHITE BLOOD COUNT 7.2 TH/MM3 (4.0-11.0)
[2016-12-20 22:07] LABS: HEMO FLAGS AUTO DIFF
[2016-12-20] MEDS: MIRTAZAPINE 15 MG TAB PO SCH (23:16)
[2016-12-21] VITALS (7 sets, daily range): BP systolic 104–121; BP diastolic 59–76; PULSE 53–71; RESP 15–17; TEMP 96.4–98.7; O2SAT 96–100
[2016-12-21 00:32] LABS: BANDS 5 % (0-6); EOSINOPHILS 2 % (0-4); NEUTROPHIL # MANUAL DIFF 4.5 TH/MM3 (1.8-7.7); POLYS (SEG NEUTROPHILS) 58 % (16-70); WBC DIFF SAMPLE 100
[2016-12-21 00:33] LABS: PLATELET ESTIMATE SMEAR NORMAL (NORMAL); PLATELET MORPHOLOGY NORMAL (NORMAL); SCAN/DIFF FINAL DIFF MANUAL
[2016-12-21] MEDS: oxyCODONE/ACETAMINOPHEN 10 MG/325 MG TAB PO PRN ×5 (04:03→22:04)
[2016-12-21] MEDS: PIPERACIL-TAZO 4.5 GM PREMIX 100 ML IV SCH ×2 (04:04→11:05)
[2016-12-21] MEDS: SODIUM CHLOR 0.9% 1000 ML INJ 1,000 ML IV SCH (04:04)
[2016-12-21] MEDS: REMOVE OLD PATCH T-DERMAL SCH (07:58)
[2016-12-21] MEDS: NICOTINE 14 MG/24 HR PATCH T-DERMAL SCH (07:58)
[2016-12-21] MEDS: ENOXAPARIN SODIUM 40 MG/0.4 ML SYRINGE SQ SCH (07:59)
[2016-12-21] MEDS: SODIUM CHLORIDE 0.9% FLUSH 10 ML FLUSH IV FLUSH SCH ×2 (07:59→22:05)
--- NOTE | 2016-12-21 08:04 | RADRPT ---
EXAM DATE/TIME: 12/21/2016 07:21 [facility] COMPARISON: BILIARY SCAN (HIDA), December 19, 2016, 9:08. CT ABDOMEN & PELVIS W CONTRAST, December 18, 2016, 7 :42. INDICATIONS : Abdominal pain. Vomiting. MEDICAL HISTORY : None. SURGICAL HISTORY : None. ENCOUNTER: Initial ACUITY: 2 day PAIN SCORE: 2/10 LOCATION: Right upper quadrant TECHNIQUE: Multiplanar, multisequence magnetic resonance imaging of the abdomen was performed. High-resolution 3D dataset was utilized to reconstruct maximum-intensity projection (MIP) images. FINDINGS: INTRAHEPATIC BILE DUCTS: Within normal limits. The right posterior intrahepatic bile duct joins the left intrahepatic duct. EXTRAHEPATIC BILE DUCTS: The common bile duct measures approximately 2 mm. There is focal filling defect at the origin of the common hepatic duct, likely related to vessel crossing. No stone or filling defect is identified. GALLBLADDER: No stones, wall thickening, or pericholecystic fluid. LIVER: The liver measures 24.2 cm and demonstrates normal signal intensity. No concerning liver lesion is id entified on this non-contrast exam. PANCREAS: The main pancreatic duct is normal in size. There is no significant anatomical variant. Signal inte nsity is within normal limits. No mass is visualized on this non-contrast exam. OTHER: Spleen measures 13.9 cm. Otherwise, the remaining visualized structures demonstrate no acute abnormal ity on this non-contrast exam. CONCLUSION: 1. There are no findings to indicate common bile duct obstruction. MRCP portion of the examination is within normal limits. 2. Nonacute findings include mild hepatomegaly and splenomegaly. Madan Tong MD on December 21, 2016 at 7:56 Board Certified Radiologist. This report was verified electronically.
[2016-12-21 09:03] LABS: AUTOMATED NEUTROPHIL # 4.2 TH/MM3 (1.8-7.7); BASOPHIL % 0.3 % (0.0-2.0); EOSINOPHIL # 0.2 TH/MM3 (0-0.4); EOSINOPHIL % 2.7 % (0.0-4.0); HEMATOCRIT 40.1 % (39.0-51.0); HEMO FLAGS DIFF FINAL; LYMPH % 34.4 % (9.0-44.0); LYMPHOCYTE # 2.6 TH/MM3 (1.0-4.8); MEAN CELL VOLUME 84.9 FL (80.0-100.0); MEAN CORPUSCULAR HEMOGLOBIN 28.9 PG (27.0-34.0); MONO % 6.8 % (0.0-8.0); NEUT % 55.8 % (16.0-70.0); PLATELET COUNT 235 TH/MM3 (150-450); RED BLOOD COUNT 4.72 MIL/MM3 (4.50-5.90); RED CELL DISTRIBUTION WIDTH 13.8 % (11.6-17.2); WHITE BLOOD COUNT 7.6 TH/MM3 (4.0-11.0)
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
[2016-12-21] MEDS ORDERED: oxyCODONE/ACETAMINOPHEN 7.5 MG/325 MG TAB PO PRN (17:00)
[2016-12-21] MEDS: MIRTAZAPINE 15 MG TAB PO SCH (22:04)
[2016-12-22] VITALS (7 sets, daily range): BP systolic 102–117; BP diastolic 54–63; PULSE 44–61; RESP 15–18; TEMP 96.4–98.4; O2SAT 94–99
[2016-12-22] MEDS: oxyCODONE/ACETAMINOPHEN 10 MG/325 MG TAB PO PRN ×4 (02:10→14:11)
[2016-12-22] MEDS: ENOXAPARIN SODIUM 40 MG/0.4 ML SYRINGE SQ SCH (09:07)
[2016-12-22] MEDS: SODIUM CHLORIDE 0.9% FLUSH 10 ML FLUSH IV FLUSH SCH (09:07)
[2016-12-22] MEDS: REMOVE OLD PATCH T-DERMAL SCH (09:09)
[2016-12-22] MEDS: NICOTINE 14 MG/24 HR PATCH T-DERMAL SCH (09:09)
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
--- NOTE | 2016-12-22 18:19 | HHI.GIFU ---
GI Follow-up Note Consult Follow-up Subjective:Late entry.Patient seen earlier today.Feeling better.Po nausea, vomiting .Had some loose stools MRCP did not indicate any signs of biliary obstruction. Delayed HIDA not done due to too much time elapsing,discussed with radiologist some contrast seen in duodenum at the end of study.Less likely biliary obstruction, most likely findings related to drug use Objective: PHYSICAL EXAMINATION: Vitals signs stable No fever HEENT: Pupils round and reactive to light; normocephalic; atraumatic; no jaundice. Throat is clear. NECK: Neck is supple, no JVD, no lymphadenopathy. CHEST: Chest is clear to auscultation and percussion. CARDIAC: Regular rate and rhythm with no murmur gallop or rubs. ABDOMEN: Soft, nondistended, nontender; no hepatosplenomegaly; bowel sounds are present in all four quadrants. EXTREMITIES: No clubbing, cyanosis, or edema. SKIN: Normal; no rash; no jaundice. 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 Available Data (labs, X- Rays, Procedues) : Allergies Coded Allergies No Known Allergies (Verified Allergy, Unknown, 12/17/16) Vital Signs Date Time Temp Pulse Resp B/P (MAP) Pulse Ox O2 Delivery O2 Flow Rate FiO2 12/22/16 12:29 58 12/22/16 12:00 97.8 58 15 102/54 (70) 94 ASSESSMENT/PLAN: nausea, vomiting -resolved possible secondary street drug use fever -resolved , no indication of infection abnormal hida , no indication of biliary obstruction clinically, as per MRCP and labs, possible pharmacologic effect on sphincter of Oddi of street drugs/ heroin ? diarrhea -we will send stool studies Recommendations stool studies avoid any drug use ok to nd home from [facility] point [facility] his choice in 1-2 weeks It was a pleasure seeing Marvin Watts. Thank you for this consult. Entered by: Gabrielle Resendiz MD Dec 22, 2016 18:19
== END 2016-12-22 14:18 | disposition home or self-care (01) | DRG 872 ==
LOC: NEPC 20:41 → NEDA 22:39 → HOCA 12-18 01:00
PROVIDERS: ADMIT Hospitalist; ATTEND Hospitalist
DX: A41.9 Sepsis, unspecified organism (principal); N17.9 Acute kidney failure, unspecified; F11.20 Opioid dependence, uncomplicated; F32.9 Major depressive disorder, single episode, unspecified; F17.210 Nicotine dependence, cigarettes, uncomplicated; F14.10 Cocaine abuse, uncomplicated; F41.9 Anxiety disorder, unspecified; J45.909 Unspecified asthma, uncomplicated; R19.7 Diarrhea, unspecified
CPT/HCPCS: 71010; 74020; 74177; 74181; 76377; 78226; 80048; 80053; 80074; 81001; 83605; 83690; 85007; 85025; 85027; 85610; 85730; 87040; 87804; 93306; 96361; 96374; 96375; A9537; J1650; J2405; J2543; J3370; J7030; J7040; J7050; Q9963; Q9967

== ENCOUNTER 2017-09-25 21:52 | Emergency (ER) | payer SELFPAY ==
[~2017-09-25 21:52] MED LIST: BUPR8SUB SL; BUSP15TA PO; REME45TA PO
[2017-09-25 22:31] VITALS: BP 121/63; PULSE 88; RESP 16; TEMP 98.6; O2SAT 100
--- NOTE | 2017-09-25 23:42 | PD ---
HPI Chief Complaint: Skin Problem Time Seen by Provider: 23:20 Travel History International Travel<30 days: No Contact w/Intl Traveler<30days: No Traveled to known affect area: No History of Present Illness HPI Patient 26-year-old male admitted IV heroin use presents emergency department for evaluation of left wrist abscess. Patient states he injected here sometime in the past. Denies any chest pain fevers abdominal pain nausea vomiting diarrhea shortness of breath. Symptoms moderate, left dorsum of the hand/wrist , duration unknown, context as above. PFSH Past Medical History Asthma: Yes Anxiety: Yes Depression: Yes Diminished Hearing: No Past Surgical History Abdominal Surgery: Yes (INTUSSUSCEPTION) Social History Alcohol Use: Yes (RARE ) Tobacco Use: Yes Substance Use: Yes (BENZOS, COCAINE, OPIATES ) Allergies-Medications (Allergen,Severity, Reaction): Coded Allergies: No Known Allergies (Verified Allergy, Unknown, 12/17/16) Reported Meds & Prescriptions Reported Meds & Active Scripts Active Bactrim DS (Sulfamethoxazole-Trimethoprim) 800-160 Mg Tab 1 Tab PO BID Review of Systems Except as stated in HPI: all other systems reviewed are Neg Physical Exam Narrative GENERAL: Well-developed well-nourished no obvious distress. SKIN: Focused skin assessment warm/dry. Patient has about a golf ball sized abscess to the dorsum of his left wrist. Fluctuant, minimal surrounding erythema but really no induration. Is fairly tender to touch. HEAD: Atraumatic. Normocephalic. EYES: Pupils equal and round. No scleral icterus. No injection or drainage. ENT: No nasal bleeding or discharge. Mucous membranes pink and moist. NECK: Trachea midline. No JVD. CARDIOVASCULAR: Regular rate and rhythm. No murmur appreciated. RESPIRATORY: No accessory muscle use. Clear to auscultation. Breath sounds equal bilaterally. GASTROINTESTINAL: Abdomen soft, non-tender, nondistended. Hepatic and splenic margins not palpable. MUSCULOSKELETAL: No obvious deformities. No clubbing. No cyanosis. Minimal edema of his left hand without any cellulitis here. The cellulitis appears to be considered fine to the dorsum of the wrist. Pulses motor and sensory intact distally in all 4 extremities, cap refill brisk in all 5 digits. Flexion and extension tendons are intact in all digits of the left hand. NEUROLOGICAL: Awake and alert. No obvious cranial nerve deficits. Motor grossly within normal limits. Normal speech. PSYCHIATRIC: Appropriate mood and affect; insight and judgment normal. Data Data Last Documented VS Vital Signs Date Time Temp Pulse Resp B/P (MAP) Pulse Ox O2 Delivery O2 Flow Rate FiO2 09/25/17 22:31 98.6 88 16 121/63 (82) 100 Orders Orders Lidocai-Epi 1%-1:100,000 Inj (Xylocaine- (09/25/17 23:45) Wound Culture And Gram Stain (09/26/17 00:16) Sulfamet-Trimeth Ds 800-160 Mg (Bactrim (09/26/17 00:30) Tramadol (Ultram) (09/26/17 00:30) Acetaminophen (Tylenol) (09/26/17 01:15) Ed Discharge Order (09/26/17 02:16) MDM Medical Decision Making Medical Screen Exam Complete: Yes Emergency Medical Condition: Yes Differential Diagnosis Abscesses, substance abuse, suicidal ideation, poor social circumstance, Narrative Course Patient room to the emergency department, he is well-appearing and certainly does not appear to be septic. His abscess was drained, he will be started on Bactrim. Patient did have a very vague suicidal ideation without any planning stated really because he just wanted to get off the heroin. He is future oriented and wants to be voluntarily evaluated for substance abuse. He was a [email or web address] earlier today and my staff is called over and they are willing to triage him here and he is willing to go back. Transportation was arranged. Having excluded acute emergent medical conditions he is stable for transport to [facility]. Diagnosis Primary Impression: Abscess Additional Impression: Heroin abuse Med/Other Pt SpecificInfo: Prescription(s) given Scripts Sulfamethoxazole-Trimethoprim (Bactrim DS) 800-160 Mg Tab 1 TAB PO BID for Infection, #14 TAB 0 Refills Prov: Magno Crow MD 09/26/17 Disposition: 01 DISCHARGE HOME Condition: Stable Magno Crow MD Sep 25, 2017 23:42
[2017-09-25] MEDS ORDERED: LIDOCAINE 1%/EPINEPHrine 1:100,000 SOLN 50 ML VIAL INFIL ONE (23:45)
--- NOTE | 2017-09-25 23:59 | PD ---
Data Data Last Documented VS Vital Signs Date Time Temp Pulse Resp B/P (MAP) Pulse Ox O2 Delivery O2 Flow Rate FiO2 09/25/17 22:31 98.6 88 16 121/63 (82) 100 Orders Orders Lidocai-Epi 1%-1:100,000 Inj (Xylocaine- (09/25/17 23:45) MDM Medical Record Reviewed: Yes Supervised Visit with FLORINDA: No Narrative Course This patient presents with an abscess on the dorsum of the left wrist which I was asked to perform incision and drainage on. He verbally consents. Wound culture was obtained. Procedures Procedure Narrative INCISION AND DRAINAGE OF ABSCESS: The area was prepped and was sterilely draped. A subcutaneous wheal of 1% Xylocaine with epinephrine with a total number 6 mL was used to anesthetize the area. The area was properly anesthetized. A number 11scalpel was used to make a 1.5 -cm incision across the area of the abscess. Cultures were obtained. The abscess was drained an irrigated with normal saline. Scripts No Active Prescriptions or Reported Meds Melvin Phillips Sep 25, 2017 23:59
[2017-09-26] MEDS ORDERED: BACT800T5 PO (00:18)
[2017-09-26] MEDS ORDERED: traMADol HCL 50 MG TAB PO ONE (00:30)
[2017-09-26] MEDS ORDERED: SULFAMETHOXAZOLE-TRIMETHOPRIM DS 800-160 MG TAB PO ONE (00:30)
[2017-09-26] MEDS ORDERED: ACETAMINOPHEN 325 MG TAB PO ONE (01:15)
== END 2017-09-26 02:32 | disposition home or self-care (01) ==
LOC: NEPE 21:52
DX: L02.414 Cutaneous abscess of left upper limb (principal); F11.10 Opioid abuse, uncomplicated; Z72.0 Tobacco use
CPT/HCPCS: 10060; 86403; 87070; 87077; 87186